=== PATIENT | female | born 1970 | race Hispanic/Latino ===

== ENCOUNTER 2023-01-21 10:22 | Emergency (ER) | payer MEDICAID | END 2023-01-21 11:25 | disposition left against medical advice (07) | LOC: EDH 10:22 | DX: R51.9 Headache, unspecified (principal); H53.8 Other visual disturbances; Z53.21 Procedure and treatment not carried out due to patient leaving prior to being seen by health care provider ==

== ENCOUNTER 2023-12-01 10:21 | Emergency (ER) | payer MEDICAID ==
[~2023-12-01] VITALS: Ht 152.4 cm; Wt 61.7 kg
[~2023-12-01 10:21] MED LIST: CIPR500T10 PO; LACT1CAP65 PO
--- NOTE | 2023-12-01 10:41 | ERN ---
ED Note History of Present Illness Stated Complaint: HEADACHE, DIZZINESS Chief Complaint: Headache Time Seen by MD: 10:24 Dictation: 53-year-old female presents to the ED for evaluation of headache onset 2 hours ago. Patient reports generalized headache of "20/10,"dizziness and nausea, but denies vomiting or fever. Patient reports she has had similar symptoms before. No other medical or surgical history mentioned. Allergies: Coded Allergies: No Known Allergies (Unverified Allergy, Unknown, 09/02/23) Home Meds Active Scripts Ciprofloxacin HCl (Ciprofloxacin HCl) 500 Mg Tablet, 500 MG PO BID for 7 Days, #14 TAB Prov:CAMILLA LOPEZ BUCKSHOT SWAGE OPERATOR 09/05/23 Lactobac Cmb #3/Fos/Pantethine (Probiotic & Acidophilus Cap) 300MM-250 Capsule, 1 EACH PO TIDMEALS for 15 Days, #45 CAP Prov:CAMILLA LOPEZ BUCKSHOT SWAGE OPERATOR 09/05/23 Past Medical History Past Medical History: No Pertinent History, Unknown Surgical History: Appendectomy, Other Review of System Dictation Constitutional: Negative for fever,chills, and weight loss Eyes: Negative for injury, pain,redness, and discharge ENT: Negative for injury,pain or swelling Cardiovascular: Negative for chest pain, palpitations, and edema Respiratory: Negative for shortness of breath, cough, and wheezing, Abdomen/GI: Positive for nausea Negative for abdominal pain, vomiting, diarrhea, and constipation Back: Negative for injury and pain : Negative for injury, bleeding and discharge MS/Extremity: Negative for injury and deformity Skin: Negative for rash, and discoloration Neuro: Positive for headache, negative for weakness, numbness, tingling, and seizure Psych: Negative for suicide ideation, homicidal ideation, and hallucinations Initial Vital Sign VS Vital Signs Date Time Temp Pulse Resp B/P (MAP) Pulse Ox O2 Delivery O2 Flow Rate FiO2 12/01/23 10:22 97.9 67 16 158/96 99 Room Air 0 12/01/23 10:38 21 Physical Exam Dictation General: awake, alert, NAD, mild distress Head/Face: Normocephalic, atraumatic Eyes: PERRL, EOMI, vision at baseline ENT: oral cavity clear, TMs clear, no signs of infection Neck: Trachea midline, supple, no nuchal rigidity Cardiovascular: RRR, normal S1/S2, No MRGs, no JVD Respiratory: CTAB, no respiratory distress, No rales or wheezes Abdomen: Soft, non-tender, non-distended, normal bowel sounds, no guarding or rebound. Skin: Warm, dry, normal turgor, no rash MS/Extremity: Pulses equal, no cyanosis, neurovascular intact, FROM Neuro: COAx4, GCS 15, strength 5/5, CN 2-12 intact, normal cerebellar exam, normal gait, Psych: Normal behavior, mood, and affect normal Results (Laboratory/Radiology) Laboratory/Radiology Laboratory Tests Test 12/01/23 10:38 12/01/23 10:45 White Blood Count 8.4 K/uL (4.8-10.8) Red Blood Count 5.18 MIL/uL (4.00-5.50) Hemoglobin 14.7 g/dL (12.0-16.0) Hematocrit 44.1 % (36-48) Mean Corpuscular Volume 85.1 fL (79-99) Mean Corpuscular Hemoglobin 28.4 pg (27.0-33.0) Mean Corpuscular Hemoglobin Concent 33.3 g/dL (32.0-36.0) Red Cell Distribution Width 12.5 % (11.0-15.5) Platelet Count 354 K/uL (130-400) Mean Platelet Volume 9.8 fL (7.5-10.5) Nucleated Red Blood Cells 0.0 % (0.0-0.19) Sodium Level 139 mmol/L (136-145) Potassium Level 3.8 mmol/L (3.5-5.1) Chloride Level 102 mmol/L (101-111) Carbon Dioxide Level 29 mmol/L (21-32) Blood Urea Nitrogen 13 mg/dL (7-18) Creatinine 0.8 mg/dL (0.5-1.0) Glomerular Filtration Rate Calc 88 mL/min (>90) Random Glucose 103 mg/dL (70-105) Total Calcium 9.4 mg/dL (8.5-10.1) Urine Color YELLOW (YELLOW) Urine Appearance CLEAR (CLEAR) Urine pH 5.5 (5.0-8.0) Urine Specific [place] 1.020 (1.001-1.031) Urine Protein 20 mg/dL (NEGATIVE) H Urine Glucose (UA) NEGATIVE mg/dL (NEGATIVE) Urine Ketones NEGATIVE mg/dL (NEGATIVE) Urine Occult Blood SMALL (NEGATIVE) H Urine Nitrate NEGATIVE (NEGATIVE) Urine Bilirubin NEGATIVE mg/dL (NEGATIVE) Urine Urobilinogen 2.0 mg/dL (0.2-1.0) H Urine Leukocyte Esterase NEGATIVE Peter/uL Urine RBC 6-10 /HPF (0-1) H Urine WBC 2-5 /HPF (0-1) H Urine Squamous Epithelial Cells FEW /HPF (0-2) Urine Bacteria None /HPF (None Seen) Labs Reviewed?: Yes EKG Comment: 12/01/2023 time 10:33 a.m. Ventricular rate 64 Sinus rhythm MD [address] wave elevation or depression ED Course ED Course Orders Procedure Category Date Status Time 12 Lead Ekg Tracing- EKG 12/01/23 Complete Technical 10:31 Cbc Without LAB 12/01/23 Complete Differential 10:38 Basic Metabolic Panel LAB 12/01/23 Complete 10:38 Urinalysis Profile LAB 12/01/23 Complete 10:38 0.9%Nacl 1000ml (Ns PHA 12/01/23 Complete 1000ml) 11:00 Prochlorperazine PHA 12/01/23 Complete 10mg/2ml Inj 11:00 Diphenhydramine Hcl PHA 12/01/23 Complete (Benadryl Inj) 11:00 Current Medications Medications (Trade) Dose Ordered Sig/Luz Route PRN Reason Start Time Stop Time Status Last Admin Dose Admin Diphenhydramine HCl (BENAdryl INJ) 25 mg ONCE ONCE IV 12/01/23 11:00 12/01/23 11:01 DC 12/01/23 10:51 Prochlorperazine Edisylate (Compazine 10mg/ 2ml Inj) 10 mg ONCE ONCE IV 12/01/23 11:00 12/01/23 11:01 DC 12/01/23 10:51 Sodium Chloride 1,000 ml @ 0 mls/hr ONCE ONCE IV 12/01/23 11:00 12/01/23 11:01 DC 12/01/23 10:51 Vital Signs Date Time Temp Pulse Resp B/P (MAP) Pulse Ox O2 Delivery O2 Flow Rate FiO2 12/01/23 10:38 82 17 186/113 100 Room Air* 0 21 12/01/23 10:22 97.9 67 16 158/96 99 Room Air 0 Medical Decision Making MDM MDM: Differential diagnosis: Tension headache migraine, sinusitis Previous outside records reviewed: Old ER visits. Need for hospitalization: Patient does not meet criteria for hospitalization. Need for emergency major/minor surgery: No Patient's prior external medical records from other ER visits were reviewed by me as indicated. Prior testing and results from previous visits were reviewed. Prior tests were taken into account with medical decision making and resource utilization, independent historian/historians were used to obtain complete medical history. I independently interpreted the test that were performed, results were reviewed by me and considered findings on radiology if ordered. Medical management and examination interpretation discussions were had by me with other qualified healthcare professionals as indicated for the patient's care. NIH STROKE SCALE: NIH STROKE SCALE Response (Comments) Value Level of Consciousness Alert 0 Ask patient month and their age Answers both correct 0 Command to open eyes, make fist and let go Obeys both correct 0 Best gaze (horizontal eye movement) Normal 0 Visual Field Testing No Visual Field Loss 0 Facial Paresis Normal / Symmetrical 0 Motor Function - Left Arm Drift 1 Motor Function - Right Arm Normal 0 Motor Function - Left Leg Normal 0 Motor Function - Right Leg Normal 0 Limb Ataxia No Ataxia 0 Sensory-pin prick to arms, legs, trunk and face Normal 0 Best Language (describe picture, name items and read) No Aphasia 0 Dysarthria (read several words) Normal Articulation 0 Extinction and Inattention Normal 0 Total 1 DX & DISP Disposition: Discharge Departure Impression: Primary Impression: Sinusitis Additional Impression: Tension headache Condition: Stable Scripts Diclofenac Sodium (Voltaren Arthritis Pain) 1 % Gel..gram. 20 GM TP BID for 7 Days, #1 TUBE Prov: SHEELA DREW MD 12/01/23 Amoxicillin/Potassium Clav (Amox Tr-K Clv 875-125 mg Tab) 875 Mg-125 Mg Tablet 1 TAB PO BID for 10 Days, #20 TAB 0 Refills Prov: SHEELA DREW MD 12/01/23 Additional Instructions: FOLLOW-UP WITH PRIMARY CARE PROVIDER IN 1 TO 2 DAYS. TAKE MEDICATIONS DIRECTED HERE IN THE EMERGENCY ROOM. OKAY TO CONTINUE HOME MEDICATIONS UNLESS OTHERWISE DISCUSSED DURING YOUR VISIT IN THE EMERGENCY ROOM TODAY. RETURN TO YOUR NEAREST EMERGENCY ROOM IF SYMPTOMS WORSEN OR IF THERE IS NO IMPROVEMENT. CALL 911 IF YOU NEED IMMEDIATE ASSISTANCE. TAKE TYLENOL [id number] NEEDED AND IF NO CONTRAINDICATIONS ARE PRESENT. INCREASE ORAL HYDRATION. A WOUND CULTURE OR URINE CULTURE WAS ORDERED HERE IN THE EMERGENCY ROOM DEPARTMENT PLEASE FOLLOW-UP WITH PRIMARY CARE PROVIDER AND ADVISE THEM TO GET REPEAT PORTS FROM OUR FACILITY. IF YOU HAD ANY MARVIN WRAP/SPLINTS THAT WERE APPLIED HERE, PLEASE DO NOT REMOVE THEM UNTIL YOU SEE YOUR PRIMARY CARE OR SPECIALTY. Referrals: Referrals: MARCUS ALVAREZ (PCP) HOLLEY DOMÍNGUEZ MD Time of Disposition: 11:48 I have reviewed, & agreed with my scribe's, documentation. (Entered by Jl Lucas, acting as a scribe for Dr. Drew) ATTESTATION BY PHYSICIAN I have seen and examined the patient. I reviewed the documentation, medical decision making, and treatment plan as noted by the resident provider above. I agree with the findings and plan of care. Sheela Drew MD I personally scribed for SHEELA DREW MD ([email or web address]) on 12/01/23 at 10:41. Electronically submitted by Jl Lucas ([email or web address]). I personally scribed for SHEELA DREW MD ([email or web address]) on 12/01/23 at 11:46. Electronically submitted by Jl Lucas ([employer]). I personally scribed for SHEELA DREW MD ([email or web address]) on 12/01/23 at 11:49. Electronically submitted by lJ Lucas ([employer]). SHEELA DREW MD Dec 01, 2023 10:41 NAGI POST MD Dec 01, 2023 11:03
[2023-12-01 10:47] LABS: HEMATOCRIT 44.1 % (36-48); MEAN CORPUSCULAR HEMOGLOBIN 28.4 pg (27.0-33.0); MEAN CORPUSCULAR HGB CONC 33.3 g/dL (32.0-36.0); MEAN CORPUSCULAR VOLUME 85.1 fL (79-99); RED BLOOD CELL COUNT(AUTO) 5.18 MIL/uL (4.00-5.50); RED CELL DISTRIBUTION WIDTH 12.5 % (11.0-15.5); WHITE BLOOD COUNT (AUTO) 8.4 K/uL (4.8-10.8)
[2023-12-01] MEDS: PROCHLORPERAZINE 10MG/2ML INJ IV ONE (10:51)
[2023-12-01] MEDS: DiphenhydrAMINE HCL 50 MG/ML VIAL IV ONE (10:51)
[2023-12-01] MEDS: 0.9%NACL 1000ML 1,000 ML IV ONE (10:51)
[2023-12-01 10:58] LABS: CREATININE 0.8 mg/dL (0.5-1.0); POTASSIUM 3.8 mmol/L (3.5-5.1)
[2023-12-01 10:58] LABS: APPEARANCE,URINE CLEAR (CLEAR); BILIRUBIN,URINE NEGATIVE (NEGATIVE); COLOR,URINE YELLOW (YELLOW); GLUCOSE, URINE (UA) NEGATIVE (NEGATIVE); KETONES,URINE NEGATIVE (NEGATIVE); LEUKOCYTE ESTERASE ,URINE NEGATIVE Leu/uL (NEGATIVE); NITRATE,URINE NEGATIVE (NEGATIVE); OCCULT BLOOD,URINE SMALL (NEGATIVE); PH,URINE 5.5 (5.0-8.0); PROTEIN,URINE 20 mg/dL (NEGATIVE)
[2023-12-01 11:00] LABS: ADD UA MICROSCOPIC YES
--- NOTE | 2023-12-01 11:13 | EKG ---
[facility] Test Date: 2023-12-01 Test Time: 10:33:43 Pat Name: ANDREW PARHAM Department: ED Room: Gender: F Sort Manager: [id number] : 1970 Requested By: LIDA DREW Order Number: [id number] Reading MD: Timothy Cope Measurements Intervals [place] Rate: 64 P: 24 UT: 166 QRS: -5 QRSD: 96 T: 29 QT: 390 QTc: 404 Interpretive Statements Sinus rhythm Compared to ECG 09/02/2023 04:03:30 No significant changes Electronically Signed On 12-01-2023 20:26:31 CDT by Timothy Cope Please click the below link to view image of tracing.
[2023-12-01 11:40] LABS: MUCUS,URINE RARE LPF (None Seen); SQUAMOUS EPITHELIAL CELL,UR FEW /HPF (0-2)
[2023-12-01] MEDS ORDERED: AMOX1TAB16 PO (11:53)
[2023-12-01] MEDS ORDERED: DICL20GE TP (11:53)
[2023-12-01 12:00] VITALS: BP 144/86; PULSE 72; RESP 16; TEMP 97.9; O2SAT 99
== END 2023-12-01 12:10 | disposition home or self-care (01) ==
LOC: EDH 10:21
DX: G44.209 Tension-type headache, unspecified, not intractable (principal); J32.9 Chronic sinusitis, unspecified; M19.90 Unspecified osteoarthritis, unspecified site; Z79.899 Other long term (current) drug therapy; Z90.49 Acquired absence of other specified parts of digestive tract
CPT/HCPCS: 99284; 96374; 96361; 96375; 80048; 85027; 81001; 36415; 93005; J1200; J7030; J0780